=== PATIENT | male | born 1960 | race Hispanic/Latino ===

== ENCOUNTER 2022-08-07 00:41 | Emergency (ER) | payer OTHER ==
[2022-08-07 02:07] LABS: Absolute Lymphocytes (CBC) 1.4 K/uL (0.7-4.9); Hematocrit 41.9 % (39.6-49.0); Lymphocytes % 25.2 % (15.3-44.8); MPV 9.8 fL (7.6-11.3); RBC Red Blood Cell Count 4.99 M/uL (4.33-5.43)
[2022-08-07] MEDS ORDERED: KETOROLAC 30 MG/ML INJ ONE (02:14)
[2022-08-07 02:16] LABS: Urine Blood 3+ (Negative); Urine Glucose Trace (Negative); Urine Protein Negative (Negative); Urine Specific Gravity >=1.030 (1.005-1.030); Urine pH 6.5 (5.0-7.0)
[2022-08-07 02:23] LABS: Albumin 3.7 g/dL (3.4-5.0); Bilirubin Total 0.6 mg/dL (0.2-1.0); Potassium 3.4 mmol/L (3.5-5.1); Protein, Total 7.2 g/dL (6.4-8.2)
[2022-08-07 02:29] LABS: Urine Bacteria <20 /HPF (<20); Urine Mucus Slight /HPF (None Seen); Urine RBC >50 /HPF (None Seen)
--- NOTE | 2022-08-07 03:25 | ER ---
Nurse's Notes [facility] Name: Miguelito Leon Jr Age: 62 yrs Sex: Male : 1960 Arrival Date: 08/07/2022 Time: 00:47 Bed 28 Private MD: Diagnosis: Hydronephrosis with renal and ureteral calculous obstruction;Left flank pain;Elevated blood-pressure reading, without diagnosis of hypertension Presentation: 08/07 00:52 Chief complaint: Patient states: "I think I am having kidney stones, the pain was real tw5 real bad just as I was getting here, it has kind of subsided a little now.". Coronavirus screen: Vaccine status: Patient reports receiving the 2nd dose of the covid vaccine. Owlient. Ebola Screen: Patient negative for fever greater than or equal to 101.5 degrees Fahrenheit, and additional compatible Ebola Virus Disease symptoms Patient denies exposure to infectious person. Patient denies travel to an Ebola-affected area in the 21 days before illness onset. Initial Sepsis Screen: Does the patient meet any 2 criteria? Yes Does the patient have a suspected source of infection? No. Patient's initial sepsis screen is negative. Risk Assessment: Do you want to hurt yourself or someone else? Patient reports no desire to harm self or others. Onset of symptoms was August 07, 2022 at 00:10. 00:52 Method Of Arrival: Ambulatory tw5 00:52 Acuity: MARTÍN 3 tw5 Triage Assessment: 00:53 General: Appears uncomfortable, Behavior is calm, cooperative, appropriate for age. tw5 Pain: Complains of pain in left lower quadrant Pain currently is 6 out of 10 on a pain scale. at worst was 10 out of 10 on a pain scale. Historical: - Allergies: 01:00 No Known Allergies; ke1 - Home Meds: 00:54 irbesartan [Active]; carvedilol [Active]; rosuvastatin [Active]; tw5 - PMHx: 00:53 Kidney stone; bradycardia; tw5 - PSHx: 00:53 Appendectomy; tw5 - Immunization history:: Flu vaccine is up to date. - Social history:: Smoking status: Patient denies any tobacco usage or history of. Screenin:02 Abuse screen: Denies threats or abuse. Nutritional screening: No deficits noted. ke1 Tuberculosis screening: No symptoms or risk factors identified. Fall Risk None identified. Assessment: 02:03 GI: Bowel sounds diminished in right upper quadrant and right lower quadrant Abd is ke1 soft. 02:05 Pain: Complains of pain in abdomen Pain currently is 6 out of 10 on a pain scale. ke1 Vital Signs: 00:52 BP 140 / 89; Pulse 80; Resp 18; Temp 98.8; Pulse Ox 97% on R/A; Weight 78.47 kg; Height tw5 5 ft. 9 in. (175.26 cm); Pain 6/10; 02:45 Pain 0/10; ke1 03:41 BP 136 / 78; Pulse 78; Resp 16; Temp 98.6; Pulse Ox 100% on R/A; Pain 0/10; ke1 00:52 Body Mass Index 25.55 (78.47 kg, 175.26 cm) tw5 ED Course: 00:47 Patient arrived in ED. ag3 00:48 Jose M Valle DO is Attending Physician. ms3 00:53 Triage completed. tw5 00:55 Arm band placed on. tw5 01:08 Wallace Mathur, BOBO is Primary Nurse. ke1 01:57 CT Abd/Pelvis - Without Contrast In Process Unspecified. EDMS 02:02 Inserted saline lock: 20 gauge in right antecubital area, using aseptic technique. ke1 02:03 Patient has correct armband on for positive identification. Bed in low position. ke1 03:24 Sixto Greenwood MD is Referral Physician. ms3 03:42 No provider procedures requiring assistance completed. IV discontinued. ke1 Administered Medications: 02:15 Drug: Ketorolac 10 mg Route: IVP; Site: left antecubital; ke1 02:45 Follow up: Pain 0/10 Adult; Response: Pain is decreased ke1 Medication: 03:43 VIS not applicable for this client. ke1 Outcome: 03:25 Discharge ordered by . ms3 03:42 Discharged to home ke1 03:42 Condition: good 03:42 Discharge instructions given to patient. 03:43 Patient left the ED. ke1 Signatures: Dispatcher [employer] EDMS Sho Moeller ag3 Jose M Valle DO DO ms3 Josefina Gibson tw5 Ebrottie, Kouassi, RN RN ke1
--- NOTE | 2022-08-07 03:25 | EDPHYS ---
Physician Documentation [facility] Name: Miguelito Leon Jr Age: 62 yrs Sex: Male : 1960 Arrival Date: 08/07/2022 Time: 00:47 Bed 28 Private MD: ED Physician Jose M Valle HPI: 08/07 01:24 This 62 yrs old Male presents to ER via Ambulatory with complaints of ms3 Abdominal Pain. 01:24 62-year-old male with past medical history of kidney stones and bradycardia presents ms3 for left flank pain that began 2 days prior to arrival. Patient states the pain radiates from the left flank to his groin. Patient states his pain is currently 2-3/10 and described as being sharp. Patient endorses nausea and chills. Patient denies alleviating or inciting factors.. Historical: - Allergies: 01:00 No Known Allergies; ke1 - Home Meds: 00:54 irbesartan [Active]; carvedilol [Active]; rosuvastatin [Active]; tw5 - PMHx: 00:53 Kidney stone; bradycardia; tw5 - PSHx: 00:53 Appendectomy; tw5 - Immunization history:: Flu vaccine is up to date. - Social history:: Smoking status: Patient denies any tobacco usage or history of. ROS: 01:46 Constitutional: Negative for fever, and chills. Neck: Negative for injury, pain, and ms3 swelling, Cardiovascular: Negative for chest pain, and palpitations. Respiratory: Negative for shortness of breath, cough, wheezing, and pleuritic chest pain, Abdomen/GI: Negative for abdominal pain, nausea, vomiting, diarrhea, and constipation. 01:46 MS/Extremity: Negative for injury and deformity, Skin: Negative for injury, rash, and discoloration. 01:46 Back: Positive for flank pain. 01:46 All other systems are negative. Exam: 01:46 Constitutional: This is a well developed, well nourished patient who is awake, alert, ms3 and in no acute distress. Head/Face: Normocephalic, atraumatic. Neck: Trachea midline, no cervical lymphadenopathy. Supple, full range of motion without nuchal rigidity, or vertebral point tenderness. No Meningismus. Chest/axilla: Normal chest wall appearance and motion. Nontender with no deformity. Cardiovascular: Regular rate and rhythm with a normal S1 and S2. No gallops, murmurs, or rubs. Normal PMI, no JVD. No pulse deficits. Respiratory: Lungs have equal breath sounds bilaterally, clear to auscultation and percussion. No rales, rhonchi or wheezes noted. No increased work of breathing, no retractions or nasal flaring. Abdomen/GI: Soft, non-tender, with normal bowel sounds. No distension or tympany. No guarding or rebound. No evidence of tenderness throughout. Skin: Warm, dry with normal turgor. Normal color with no rashes, no lesions, and no evidence of cellulitis. MS/ Extremity: Pulses equal, no cyanosis. Neurovascular intact. Full, normal range of motion. Psych: Awake, alert, with orientation to person, place and time. Behavior, mood, and affect are within normal limits. Vital Signs: 00:52 BP 140 / 89; Pulse 80; Resp 18; Temp 98.8; Pulse Ox 97% on R/A; Weight 78.47 kg; Height tw5 5 ft. 9 in. (175.26 cm); Pain 6/10; 02:45 Pain 0/10; ke1 03:41 BP 136 / 78; Pulse 78; Resp 16; Temp 98.6; Pulse Ox 100% on R/A; Pain 0/10; ke1 00:52 Body Mass Index 25.55 (78.47 kg, 175.26 cm) tw5 MDM: 01:13 Patient medically screened. ms3 03:27 Differential diagnosis: appendicitis, diverticulitis, non-specific abd pain, ms3 Ureterolithiasis. Data reviewed: vital signs, nurses notes, lab test result(s), radiologic studies, and as a result, I will discharge patient. Counseling: I had a detailed discussion with the patient and/or guardian regarding: the historical points, exam findings, and any diagnostic results supporting the discharge/admit diagnosis, lab results, radiology results, the need for outpatient follow up, to return to the emergency department if symptoms worsen or persist or if there are any questions or concerns that arise at home. Special discussion: I discussed with the patient/guardian in detail that at this point there is no indication for admission to the hospital. It is understood, however, that if the symptoms persist or worsen the patient needs to return immediately for re-evaluation. ED course: Patient improved since arrival to the emergency department, pain is well controlled, patient is alert and oriented x4, in no apparent distress, nontoxic, ambulatory in emergency department. Patient to follow-up with Dr. Greenwood in 2 to 3 days. Patient understands and agrees with plan. All questions were answered. Return precautions discussed include worsening symptoms, or any other concerns. Prescriptions for Flomax and Tylenol 3 were provided.. 08/07 01:21 Order name: CBC with Diff; Complete Time: 02:40 ms3 08/07 01:21 Order name: CMP; Complete Time: 02:40 ms3 08/07 01:21 Order name: Lipase; Complete Time: 02:40 ms3 08/07 01:21 Order name: Urine Microscopic Only; Complete Time: 02:40 ms3 08/07 01:21 Order name: CT Abd/Pelvis - Without Contrast ms3 08/07 02:16 Order name: Urine Dipstick-Ancillary; Complete Time: 02:40 EDMS 08/07 01:21 Order name: IV Saline Lock; Complete Time: 02:02 ms3 08/07 01:21 Order name: Labs collected and sent; Complete Time: 02:02 ms3 08/07 01:21 Order name: Urine Dipstick-Ancillary (obtain specimen); Complete Time: 02:15 ms3 Administered Medications: 02:15 Drug: Ketorolac 10 mg Route: IVP; Site: left antecubital; ke1 02:45 Follow up: Pain 0/10 Adult; Response: Pain is decreased ke1 Disposition Summary: 08/07/22 03:25 Discharge Ordered Location: Home ms3 Condition: Stable ms3 Diagnosis - Hydronephrosis with renal and ureteral calculous obstruction ms3 - Left flank pain ms3 - Elevated blood-pressure reading, without diagnosis of hypertension ms3 Followup: ms3 - With: Sixto Greenwood MD - When: 2 - 3 days - Reason: Recheck today's complaints Discharge Instructions: - Discharge Summary Sheet ms3 - Hypertension, Adult ms3 - Kidney Stones ms3 - Kidney Stones, [id number] ms3 - Hydronephrosis ms3 Forms: - Medication Reconciliation Form ms3 - Thank You Letter ms3 - Antibiotic Education ms3 - Prescription Opioid Use ms3 Prescriptions: - Flomax 0.4 mg Oral capsule - take 1 capsule by ORAL route once daily 1/2 hour following the same meal each ms3 day; 14 capsule; Refills: 0, Product Selection Permitted - Tylenol-Codeine #3 300 mg-30 mg Oral - take 1 tablet by ORAL route every 4-6 hours; 18 tablet; Refills: 0, Product ms3 Selection Permitted Signatures: Dispatcher [employer] EDJose M Gilliam DO DO ms3 Josefina Gibson tw5 Wallace Mathur, RN RN ke1
[2022-08-08 18:19] VITALS: BP 136/78; TEMP 98.6; O2SAT 100
--- NOTE | 2022-08-09 14:06 | RAD REPORT ---
EXAM DESCRIPTION: CT Abdomen and Pelvis Without Intravenous Contrast CLINICAL HISTORY: The patient is 62 years old and is Male; Left flank pain TECHNIQUE: Axial computed tomography images of the abdomen and pelvis without intravenous contrast. Sagittal and coronal reformatted images were created and reviewed. This CT exam was performed usi ng one or more of the following dose reduction techniques: automated exposure control, adjustment o f the mA and/or kV according to patient size, and/or use of iterative reconstruction technique. COMPARISON: No relevant prior studies available. FINDINGS: LUNG BASES: Unremarkable. No mass. No consolidation. MEDIASTINUM: Large hiatal hernia. ABDOMEN: LIVER: Unremarkable. GALLBLADDER AND BILE DUCTS: Unremarkable. No calcified stones. No ductal dilation. PANCREAS: Unremarkable. No ductal dilation. SPLEEN: Unremarkable. No splenomegaly. ADRENALS: Unremarkable. No mass. KIDNEYS AND URETERS: Nonobstructive 4 mm intrarenal stone within the inferior pole the right kidney . 6 mm stone within the distal left ureter, at the approximate S2-3 level, with mild left-sided obstructive features. No additional obstructive intrarenal or intraureteral stones. STOMACH AND BOWEL: Prostamegaly. Descending and sigmoid colonic diverticulosis without evidence of acute diverticulitis. No obstruction. PELVIS: APPENDIX: No findings to suggest acute appendicitis. BLADDER: Unremarkable. No stones. REPRODUCTIVE: 4.6 x 4.1 x 4.5 cm loculated right-sided hydrocele within the right hemiscrotum. ABDOMEN and PELVIS: INTRAPERITONEAL SPACE: Unremarkable. No free air. No significant fluid collection. BONES/JOINTS: See above. SOFT TISSUES: 4 roughly 1 cm ovoid homogenous hyperdensities demonstrated in the subcutaneous tissu e of the distal penis. VASCULATURE: Unremarkable. No abdominal aortic aneurysm. LYMPH NODES: Unremarkable. No enlarged lymph nodes. IMPRESSION: 1. Mildly obstructive 6 mm distal left intraureteral stone. 2. Nonobstructive 4 mm right-sided intrarenal stone. 3. 4.6 x 4.1 x 4.5 cm loculated right-sided hydrocele within the right hemiscrotum. 4. 4 roughly 1 cm ovoid homogenous hyperdensities demonstrated in the subcutaneous tissue of the di stal penis. Of uncertain etiology, possible calcifications. Not the typical calcification pattern for Peyronie's disease Clinical correlation recommended. 5. Large hiatal hernia. Electronically signed by: Christopher Ospina MD 08/07/2022 2:56 AM CDT Due to temporary technical issues with the PACS/Fluency reporting system, reports are being signed by the in house radiologists without review as a courtesy to insure prompt reporting. The interpreting radiologist is fully responsible for the content of the report.
== END 2022-08-07 03:43 | disposition home or self-care (01) ==
LOC: ER 00:41
DX: N13.2 Hydronephrosis with renal and ureteral calculous obstruction (principal); R03.0 Elevated blood-pressure reading, without diagnosis of hypertension; Z87.442 Personal history of urinary calculi
CPT/HCPCS: 36415; 74176; 80053; 81003; 81015; 83690; 85025; 96374; 99283